=== PATIENT | male | born 1960 | race African-American/Black ===

== ENCOUNTER → 2019-02-15 | Outpatient (CLI) | payer OTHER ==
[~2019-02-15] MED LIST: REGADENOSON 0.4 MG/5 ML DISP.SYRIN. IV ONE
--- NOTE | 2019-02-15 10:55 | RAD ---
MR#: [id number] Date of Study: 02/15/2019 Ordering Physician: WILIAN DIETZ, Referring Physician: IMTIAZ MTZ Tech: DEAN Dyer ARRT (R) (N) APPROVED REPORT Test Type: Pharmacological Stress Nurse/Tech: Susana Le RN Test Indications: CP Cardiac History: Hypertension, SMOKER Medications: See Electronic Medical Record Medical History: See Electronic Medical Record Resting ECG: NSR Resting Heart Rate: 50 bpm Resting Blood Pressure: 144/90mmHg Pretest Chest Pain: None Nurse/Tech Notes Clear LS, S1 S2 Consent: The procedure was explained to the patient in lay terms. Informed consent was witnessed. Phu eout was entered into [employer]. History and Stress Test performed by Susana Le RN Pharm. Details Pharmacologic stress testing was performed using 0.4mg per 5ml of regadenoson given intravenously ove r 7-10 seconds. Stress Symptoms No chest pain or symptoms. POST EXERCISE Reason for Termination: Infusion complete Max HR: 61 bpm Max Blood Pressure: 156/77mmHg Chest Pain: No. Arrhythmia: No. ST Change: No. INTERPRETATION Stress EKG Conclusion: Baseline EKG showed sinus rhythm. No ischemic changes at peak stress. No arr hythmias. Imaging Protocol IMAGE PROTOCOL: Rest Tc-99m/stress Tc-99m 1 day Rest: Stress: Viability: Radiopharm.Tc99m IbhretnajTk75c Sestamibi Dose11.5mCi 34mCi Img Date 02/15/2019 02/15/2019 Inj-Img Nolt60tqe. 45min. Rest Admin Site:IV - Right AntecubitalAdministrator:DEAN Dyer ARRT (R)(N) Stress Admin Site: IV - Right AntecubitalAdministrator: RT Chandler (R)(N) STRESS DATA End Diast. Vol.122.0mlAv. Heart Rate65.0bpm End Syst. Vol.33.0mlCO Index BSA5.8L/min Myocardial Tdtf535.0gEject. Ucyofwtj08.0% Stress Rates Pk. Fill Rate2.79EDV/secLVtime Pk. Fill 257.52msec Pk. Empty Rate4.15ESV/secLVtime Pk. Zoeid837.46msec 1/3 Pk. Fill1.48EDV/sec Stress Scores Regional WT0.00Summed WT0.00 Regional WM0.00Summed WM0.00 Study quality was good. Left Ventricular size was Normal at Rest and Stress. Lung uptake was . Left Ventricular ejection fraction is 80%. The rest and stress images show normal perfusion, normal contraction and thickening. LV Perf. Quant 17 Seg. SSS0.00 17 Seg. SRS2.00 17 Seg. SDS0.00 Stress Defect Extent (% LAD)0.00Rest Defect Extent (% LAD)13.10Rev. Defect Extent (% LAD)0.00 Stress Defect Extent (% LCX) 0.00Rest Defect Extent (% LCX)0.00Rev. Defect Extent (% LCX)0.00 Stress Defect Extent (% RCA)0.00Rest Defect Extent (% RCA)0.00Rev. Defect Extent (% RCA)0.00 Stress Defect Extent (% SHAE)0.00Rest Defect Extent (% SHAE)4.80Rev. Defect Extent (% SHAE)0.00 Conclusion 1. Regadenoson cardioisotope stress test did not show any evidence of ischemia or infarct. 2. Normal left ventricular systolic function with ejection fraction calculated at 80%. 3. Low risk for cardiac events. Signed by : Roberto Abdi, Electronically Approved : 02/15/2019 10:55:18
== END | disposition home or self-care (01) ==
LOC: NM 08:47
PROVIDERS: ATTEND Internal Medicine Cardiovascular Disease
DX: R07.9 Chest pain, unspecified (principal); I10 Essential (primary) hypertension; Z87.891 Personal history of nicotine dependence
CPT/HCPCS: 78452; 93017; A9500; J2785

== ENCOUNTER → 2019-03-10 | Day surgery (SDC) | payer OTHER ==
[~2019-03-10] MED LIST changes: +BRIM5DRO2 OP; +DORZ10DR6 OP; +IV RINGERS,LACTATED 1000ML 1,000 ML IV SCH; +LATA2.5D3 OP; +LIDOCAINE 1% PF 2 ML VIAL. ID PRN; +LOSA-73 PO; +MIDAZOLAM HCL/PF 2 MG/2 ML VIAL. IV PRN; +PROPOFOL 40 ML IV ONE; -REGADENOSON 0.4 MG/5 ML DISP.SYRIN. IV ONE; +fentaNYL PF VIAL 100 MCG/2 ML VIAL IV PRN
[2019-03-10 09:55] VITALS: BP 133/85
== END ==
LOC: ENDOS 08:14
PROVIDERS: ATTEND Internal Medicine Gastroenterology
DX: Z12.11 Encounter for screening for malignant neoplasm of colon (principal); K64.0 First degree hemorrhoids; K63.89 Other specified diseases of intestine; F15.90 Other stimulant use, unspecified, uncomplicated; Z86.010 Personal history of colon polyps; Z72.89 Other problems related to lifestyle; Z80.3 Family history of malignant neoplasm of breast
CPT/HCPCS: 45378; J2704

== ENCOUNTER → 2020-10-18 | Outpatient (CLI) | payer OTHER ==
[2019-03-10 09:55] VITALS: BP 133/85
[~2020-10-18] MED LIST changes: -IV RINGERS,LACTATED 1000ML 1,000 ML IV SCH; -LIDOCAINE 1% PF 2 ML VIAL. ID PRN; -MIDAZOLAM HCL/PF 2 MG/2 ML VIAL. IV PRN; -PROPOFOL 40 ML IV ONE; -fentaNYL PF VIAL 100 MCG/2 ML VIAL IV PRN
== END ==
LOC: LAB 12:03
PROVIDERS: ATTEND Internal Medicine Cardiovascular Disease
DX: Z01.812 Encounter for preprocedural laboratory examination (principal); I49.5 Sick sinus syndrome; Z20.828 Contact with and (suspected) exposure to other viral communicable diseases
CPT/HCPCS: U0003

== ENCOUNTER 2020-10-20 08:14 | Observation (INO) | payer OTHER ==
[~2020-10-20] VITALS: Ht 177.8 cm; Wt 86.0 kg
[2020-10-20] VITALS (15 sets, daily range): BP systolic 105–140; BP diastolic 59–101
--- NOTE | 2020-10-20 08:59 | EKG ---
[facility] [address] [place] [address] Test Date: 2020-10-20 Test Time: 08:56:04 Pat Name: LENORE HULL Department: Room: Gender: M Teller Head: SERENE : 1960 Requested By: AVELINA RUSS Order Number: [id number] Reading MD: Measurements Intervals [place] Rate: 54 P: [place]: QRS: -19 QRSD: 84 T: -17 QT: 450 QTc: 429 Interpretive Statements IRREGULAR RHYTHM, NO P-WAVE FOUND LEFTWARD AXIS T ABNORMALITY IN INFERIOR LEADS ABNORMAL ECG RI6.02 No previous ECG available for comparison
[2020-10-20 09:03] LABS: RED BLOOD COUNT 4.45 x10^6/uL (4.30-5.70); RED CELL DISTRIBUTION WIDTH 12.7 % (11.5-14.5); WHITE BLOOD COUNT 4.7 x10^3/uL (4.0-11.0)
[2020-10-20 09:12] LABS: CALCIUM 8.8 mg/dL (8.5-10.1); GFR 91.6; POTASSIUM 3.5 mmol/L (3.5-5.1); PROTHROMBIN TIME PATIENT 13.9 SEC (11.7-14.0)
[2020-10-20] MEDS ORDERED: MIDAZOLAM HCL/PF 5 MG/5 ML VIAL. ONE (09:45)
[2020-10-20] MEDS ORDERED: fentaNYL PF VIAL 100 MCG/2 ML VIAL ONE (09:45)
[2020-10-20] MEDS ORDERED: LIDOCAINE 2%/EPI 1:100,000 20 ML VIAL. ONE (09:59)
[2020-10-20] MEDS ORDERED: BACITRACIN 50,000 UNIT in IV NORMAL SALINE 250ML 250 ML IRR ONE (10:00)
--- NOTE | 2020-10-20 10:06 | PDOC ---
MODERATE SEDATION ASSESSMENT RISKS/ALTERNATIVES Risks/Alternatives Risks and alternatives of this type of sedation and procedure discussed with: RISK/ALTERNATIVES: Patient H & P ON CHART H & P H & P on chart and reviewed for co-morbid conditions and appropriate labs. H&P ON CHART: Yes STATUS PREG STATUS ASSESSED: N/A MEDS/ALLERGIES REVIEWED Meds/Allergies Reviewed Medications and Allergies including time and route of recently administered narcotics and sedatives. MEDS/ALLERGIES REVIEWED: Yes ASA RATING ASA RATING: II AIRWAY ASSESSMENT Airway Assessment Airway patency, oral function limitations, presence of caps, crowns, dentures, partials, and ability to extend neck assessed. AIRWAY ASSESSMENT: Yes MALLAMPATI SCORE MALLAMPATI SCORE: II PRE-SEDATION ASSESSMENT PRE-SEDATION ASSESSMENT: Yes AVELINA RUSS MD Oct 20, 2020 10:06
[2020-10-20] MEDS ORDERED: MIDAZOLAM HCL/PF 5 MG/5 ML VIAL. IV ONE (10:15)
[2020-10-20] MEDS ORDERED: LIDOCAINE 2%/EPI 1:100,000 20 ML VIAL. IJ ONE (10:15)
[2020-10-20] MEDS ORDERED: fentaNYL PF VIAL 100 MCG/2 ML VIAL IV ONE (10:15)
--- NOTE | 2020-10-20 11:05 | NUR ---
Patient arrived to room 262 via bed from color laboratory technician around 1105. Patient A&OX4. VSS. L chest pacemaker site CDI. The patient, LENORE HULL, 60 y/o, M admitted by KYREE LIU MD, was given written information regarding hospital policies, unit procedures and contact persons. Valuables were checked and noted. Will continue to monitor.
--- NOTE | 2020-10-20 11:14 | CARD ---
MR#: [id number] Date of Study: 10/20/2020 Ordering Physician: AVELINA ABDI, Referring Physician: AVELINA ABDI, Tech: APPROVED REPORT PROCEDURES Insertion Dual Chamber Pacemaker Implantation of Medtronic dual-chamber permanent pacemaker Sedation Time: 55 Minutes Fluoro Time: 3.1 Minutes Dose: 7.7 Gycm2 Estimated blood loss: 10 ml INDICATIONS Sick sinus syndrome with significant pauses of greater than 5 seconds PROCEDURE After explaining the risks, benefits, and alternative options, informed consent was obtained from the patient. The patient was brought to the cardiac catheterization lab and the left chest and shoulder were prepp ed and draped in a sterile manner. 35 mL of 2% lidocaine was infiltrated into the skin and subcutaneous tissues for local anesthesia. A n incision was made over the left infraclavicular fossa and using blunt dissection and cautery, a poc ket was created. Venous access was obtained in the left subclavian vein and 9 and 7 Palestinian sheaths i nserted. A Medtronic bipolar active fixation right ventricular lead model 548277, serial number [id number] wa s advanced under fluoroscopy guidance and the tip was positioned in the right ventricular apex. Foll owing this, a Medtronic bipolar active fixation right atrial lead model 771011, serial number [id number] was position in the right atrial appendage under fluoroscopy guidance. The leads were secured i nto place and were attached to a Medtronic dual-chamber permanent pacemaker generator model [id number], s erial number [id number]. This was placed in the pocket that was subsequently closed in 3 layers. He mostasis was secured. The right ventricular lead showed a sensing amplitude of 11.9 mV, impedance of 902 ohms and a thresho ld of 0.4 V. The right atrial lead showed a sensing amplitude of 0.8 mV (s/p CABG), impedance of 646 ohms and a threshold of 0.8 V. Patient tolerated the procedure well. There were no immediate compl ications. CONCLUSION Successful implantation of Medtronic dual-chamber permanent pacemaker for sick sinus syndrome syndrom e with significant pauses. Signed by : Avelina Abdi, Electronically Approved : 10/20/2020 11:14:10
--- NOTE | 2020-10-20 13:01 | RAD ---
XR CHEST 1V CLINICAL INDICATIONS: Reason: Post pacemaker Comparison: June 30, 2015. Findings: Bipolar atrioventricular pacemaker has been placed via a left subclavian approach. No acute lung infiltrate or pleural effusion or pulmonary edema or lung mass or pneumothorax is seen. Sternot quinton is again evident. The heart size, pulmonary vasculature, mediastinum and both chris are unremarkab le. IMPRESSION: No acute radiographic abnormality is seen. Electronically signed by: Hal Stephens MD (10/20/2020 12:58 PM) [id number]
--- NOTE | 2020-10-20 15:40 | CARD ---
MR#: [id number] Date of Study: 10/20/2020 Ordering Physician: AVELINA RUSS, Referring Physician: AVELINA RUSS, Tech: Lou Navarro [facility] APPROVED REPORT EXAM: Two-dimensional and M-mode echocardiogram with Doppler and color Doppler. Other Information Quality : AverageHR: 60bpm Rhythm : NSR INDICATION 2D DIMENSIONS RVDd2.9 (2.9-3.5cm)Left Atrium(2D)3.3 (1.6-4.0cm) IVSd1.1 (0.7-1.1cm)Aortic Root(2D)3.8 (2.0-3.7cm) LVDd4.6 (3.9-5.9cm)LVOT Diameter2.0 (1.8-2.4cm) PWd1.1 (0.7-1.1cm)LVDs3.2 (2.5-4.0cm) FS (%) 30.7 %SV55.8 ml LVEF(%)58.4 (>50%) Aortic Valve AoV Peak Calvin.94.4cm/Robson Peak GR.3.6mmHg LVOT VTI 0.00cmAI P 1/2 Cijr61yx Mitral Valve MV E Cvkrjdma80.7cm/sMV DECEL AOAU029of MV A Yqqqneym88.0cm/sE/A Ratio0.7 TDI Lateral E' P. V9.09cm/sMedial E' P. V4.91cm/s E/Lateral E'3.8E/Medial E'7.1 LEFT VENTRICLE The left ventricle is normal size. There is borderline concentric left ventricular hypertrophy. The l eft ventricular systolic function is normal and the ejection fraction is within normal range. Estimat ed ejection fraction 55-60%. There is normal LV segmental wall motion. The left ventricular diastolic function and filling is normal for age. RIGHT VENTRICLE The right ventricle is normal size. There is normal right ventricular wall thickness. The right ventr icular systolic function is normal. ATRIA The left atrium size is normal. The right atrium size is normal. The interatrial septum is intact wit h no evidence for an atrial septal defect or patent foramen ovale as noted on 2-D or Doppler imaging. AORTIC VALVE The aortic valve is normal in structure and function. Doppler and Color Flow revealed no significant aortic regurgitation. There is no significant aortic valvular stenosis. MITRAL VALVE The mitral valve is normal in structure and function. There is no evidence of mitral valve prolapse. There is no mitral valve stenosis. Doppler and Color-flow revealed trace mitral regurgitation. TRICUSPID VALVE The tricuspid valve is normal in structure and function. Doppler and Color Flow revealed trace tricus pid regurgitation. Estimated PAP 28-30 mmHg. There is no tricuspid valve stenosis. PULMONIC VALVE The pulmonary valve is normal in structure and function. Doppler and Color Flow revealed no pulmonic valvular regurgitation. GREAT VESSELS The aortic root is normal in size. The ascending aorta is normal in size. The IVC is normal in size a nd collapses >50% with inspiration. PERICARDIAL EFFUSION There is no evidence of significant pericardial effusion. Critical Notification Critical Value: No <Conclusion> The left ventricle is normal size. The left ventricular systolic function is normal and the ejection fraction is within normal range. Estimated ejection fraction 55-60%. There is borderline concentric left ventricular hypertrophy. Doppler and Color Flow revealed no significant aortic regurgitation. There is no significant aortic valvular stenosis. Doppler and Color-flow revealed trace mitral regurgitation. Doppler and Color Flow revealed trace tricuspid regurgitation. Estimated PAP 28-30 mmHg. Signed by : Paco Argueta MD Electronically Approved : 10/20/2020 15:40:05
[2020-10-20] MEDS: BRIMONIDINE 0.2% OPHTH SOLUTION 5ML BOTTLE. OD SCH (21:00)
[2020-10-20] MEDS: LATANOPROST 0.005% OPHTH SOLUTION 2.5ML BOTTLE. OU SCH (21:00)
[2020-10-20] MEDS: TIMOLOL 0.25% OPHTH SOLUTION 5ML BOTTLE. OU SCH (21:00)
[2020-10-20] MEDS: DORZOLAMIDE 2% OPHTH SOLUTION 10ML BOTTLE. OU SCH (21:00)
[2020-10-20] MEDS: oxyCODONE/APAP 5/325 1 TAB TABLET PO PRN (23:09)
[2020-10-21 04:14] VITALS: BP 144/91
[2020-10-21 07:00] VITALS: BP 150/95
[2020-10-21] MEDS: oxyCODONE/APAP 5/325 1 TAB TABLET PO PRN (08:05)
[2020-10-21] MEDS: DORZOLAMIDE 2% OPHTH SOLUTION 10ML BOTTLE. OU SCH (08:06)
[2020-10-21] MEDS: BRIMONIDINE 0.2% OPHTH SOLUTION 5ML BOTTLE. OD SCH (08:06)
[2020-10-21] MEDS: LATANOPROST 0.005% OPHTH SOLUTION 2.5ML BOTTLE. OU SCH (08:06)
--- NOTE | 2020-10-21 08:06 | RAD ---
Exam performed: 2 views of the chest. Indication: Reason: 1 day post pacemaker implantation / Spl. Instructions: / History: Date of Service: 10/21/2020 7:14 AM . Comparison : One view chest from 10/20/2020 Findings: PA and lateral radiographs of the chest reveal a normal cardiomediastinal contour. Bipolar pacemaker. Previous median sternotomy. The lungs are hyperinflated, however clear. No pleural fluid is seen. T he visualized osseous structures are unremarkable. Impression: No acute cardiopulmonary process seen. Electronically signed by: Michelle Haney MD (10/21/2020 8:04 AM) [id number]
[2020-10-21] MEDS: TIMOLOL 0.25% OPHTH SOLUTION 5ML BOTTLE. OU SCH (08:07)
[2020-10-21] MEDS ORDERED: LOSARTAN POTASSIUM 50 MG TABLET. PO SCH (09:00)
[2020-10-21 11:00] VITALS: BP 107/77
--- NOTE | 2020-10-21 15:38 | PDOC3 ---
Discharge Summary Visit Information Date of Admission: Oct 20, 2020 Date of Discharge: Oct 21, 2020 Admitting Diagnosis: Sick sinus syndrome with pauses Final Diagnosis Sick sinus syndrome with pauses Brief Hospital Course Allergies Allergies Coded Allergies Type Severity Reaction Last Updated Verified No Known Drug Allergies 03/10/19 No Vital Signs Vital Signs Date Time Temp Pulse Resp B/P (MAP) Pulse Ox O2 Delivery O2 Flow Rate FiO2 10/21/20 11:00 98.1 59 16 107/77 (87) 98 Room Air 98.1 10/21/20 00:09 4.0 Lab Results Laboratory Tests Test 10/20/20 08:50 White Blood Count 4.7 x10^3/uL (4.0-11.0) Red Blood Count 4.45 x10^6/uL (4.30-5.70) Hemoglobin 15.0 g/dL (13.0-17.5) Hematocrit 44.0 % (39.0-53.0) Mean Corpuscular Volume 99 fL (79-100) Mean Corpuscular Hemoglobin 34 pg (25-35) Mean Corpuscular Hemoglobin Concent 34 g/dL (31-37) Red Cell Distribution Width 12.7 % (11.5-14.5) Platelet Count 200 x10^3/uL (140-400) Prothrombin Time 13.9 SEC (11.7-14.0) Prothromb Time International Ratio 1.1 (0.8-1.1) Sodium Level 139 mmol/L (136-145) Potassium Level 3.5 mmol/L (3.5-5.1) Chloride Level 104 mmol/L (98-107) Carbon Dioxide Level 25 mmol/L (21-32) Anion Gap 10 (6-14) Blood Urea Nitrogen 15 mg/dL (8-26) Creatinine 1.0 mg/dL (0.7-1.3) Estimated GFR (Cockcroft-Gault) 91.6 Glucose Level 110 mg/dL (70-99) Calcium Level 8.8 mg/dL (8.5-10.1) Brief Hospital Course The patient is a 60-year-old male who 1 outpatient monitor was found to have sick sinus syndrome with pauses greater than 5 seconds. Risks and benefits of a pacemaker were discussed with the patient and he agreed to proceed. The patient was brought to the catheterization lab on 10/20/2020 and a dual-chamber pacemaker was placed without complications. Chest x-ray at that night and this morning were normal. Interrogation of the device was normal. The patient is feeling well. He will be discharged today on his present home medications. Follow-up will be arranged and will be a wound check in approximately 10 days. Assessment Assessment Sick sinus syndrome with significant pauses. Successfully treated with permanent pacemaker implantation without complications. Discharge Information Condition at Discharge: Improved Follow Up: Weeks Disposition/Orders: D/C to Home Scheduled Brimonidine Tartrate/Timolol (Combigan Eye Drops) 5 Ml Drops, 5 ML OP BID for glaucoma, (Reported) Entered as Reported by: NICOLE COET on 03/10/19825 Last Taken: Unknown Dose on 10/20/20 Last Action: Converted on 10/20/201925 by DELBERT LI Dorzolamide Hcl (Dorzolamide Hcl) 10 Ml Drops, 10 ML OP TID for glaucoma, (Reported) Entered as Reported by: NICOLE COTE on 03/10/19825 Last Taken: Unknown Dose on 10/20/20 Last Action: Continued on 10/20/201924 by DELBERT LI Latanoprost (Latanoprost) 2.5 Ml Drops, 1 DROP OP HS for glaucoma, (Reported) Entered as Reported by: NICOLE COTE on 03/10/19825 Last Taken: Unknown Dose on 10/20/20 Last Action: Continued on 10/20/201924 by DELBERT LI Losartan Potassium (Losartan Potassium) 50 Mg Tablet, 50 MG PO DAILY for HYPERTENSION, (Reported) Entered as Reported by: NICOLE COTE on 03/10/19825 Last Taken: Unknown Dose on 10/20/20 Last Action: Continued on 10/20/201925 by DELBERT LI Patient Instructions Patient Instructions Routine pacemaker instructions given the patient. Patient will keep his dressing on the wound until follow-up. He was instructed not to raise his arm above his head until follow-up. We will check on the patient via phone in 2 days. Justicifation of Admission Dx: Justifications for Admission: Justification of Admission Dx: Yes WILIAN DIETZ MD Oct 21, 2020 15:37
--- NOTE | 2020-10-21 16:08 | NUR ---
Pt alert and oriented throughout shift. Pt dressing removed from surgical site. Site CDI. Sent pt with extra island dressing in case site bleeds at home. Pt tolerated removal of both IV's. Catheter tips intact. Pressure applied bleeding stopped. Pt educated on post pacemaker instructions. Pt educated on how to plug in pacemaker transmitter. All pt questions answered at time of discharge. Pt advised when next medications due and that drs office will call on friday for follow up. Pt wheeled to outpatient by TRIP RIDER to private vehicle.
== END 2020-10-21 17:53 | disposition home or self-care (01) ==
LOC: CCL 08:14 → 2 SOUTH 08:30 → INTOOBSV 08:30
PROVIDERS: ADMIT Family Medicine; ATTEND Internal Medicine Cardiovascular Disease
DX: I49.5 Sick sinus syndrome (principal); I10 Essential (primary) hypertension; E78.1 Pure hyperglyceridemia; H54.62 Unqualified visual loss, left eye, normal vision right eye; R07.9 Chest pain, unspecified; H40.9 Unspecified glaucoma; Z98.890 Other specified postprocedural states; Z85.46 Personal history of malignant neoplasm of prostate; Z68.27 Body mass index [BMI] 27.0-27.9, adult; Z95.0 Presence of cardiac pacemaker
CPT/HCPCS: 33208; 36415; 71045; 71046; 80048; 85027; 85610; 93005; 93306; 96365; 96366; 96368; 96375; 99152; 99153; C1785; G0378; G0379; J0690; J2250; J3010; J3490; J7050; J7030

== ENCOUNTER → 2021-10-09 | Outpatient (CLI) | payer OTHER ==
--- NOTE | 2021-10-09 09:52 | RAD ---
EXAM: Abdomen sonogram. HISTORY: Elevated liver function laboratory values. TECHNIQUE: Sonographic imaging of the abdomen was performed. COMPARISON: None. FINDINGS: The liver is normal in size. No focal hepatic lesion is seen. The liver parenchyma is sligh tly echogenic relative to the renal cortex. This favors mild hepatic steatosis. The gallbladder is un remarkable. The common bile duct is normal in caliber. The kidneys are unremarkable. The pancreas and spleen are unremarkable. The aorta is normal in caliber. The inferior vena cava is patent. IMPRESSION: 1. Suspected mild hepatic steatosis. 2. No acute sonographic finding. Electronically signed by: Lady Silva MD (10/09/2021 9:49 AM) [id number]
== END ==
LOC: US 09:13
PROVIDERS: ATTEND Family Medicine
DX: R74.01 Elevation of levels of liver transaminase levels (principal)
CPT/HCPCS: 76700

== ENCOUNTER → 2021-11-02 | Outpatient (CLI) | payer OTHER ==
[2021-11-02 13:59] VITALS: BP 133/91
--- NOTE | 2021-11-02 14:30 | NUR ---
Pt here for MRI of cervical spine, Medtronic rep here to program pacemaker for exam. Pt tolerated exam without difficulty, VSS. Upon completion of exam, [employer] rep made final adjustment and pt ambulated out with steady gait. INEZ CHAKRABORTY
--- NOTE | 2021-11-02 16:12 | RAD ---
EXAMINATION: Magnetic resonance imaging (MRI) of the cervical spine without contrast 11/02/2021 1:03 PM HISTORY: Cervical radiculopathy TECHNIQUE: Multiplanar multi-weighted MRI of the cervical spine was performed without intravenous con trast using the standard cervical spine protocol. Contrast information: None administered COMPARISON: None available. FINDINGS: There is straightening of the normal cervical lordosis. There is moderate disc height loss at C4-C5, C5-C6 and C6-C7 with Modic type II endplate degenerative changes. Minimal Modic type I endplate degen erative changes are identified at C7-T1 anteriorly. There is congenital narrowing of the spinal canal secondary to shortened pedicles.. No acute fracture is identified; however, if trauma is suspected, a CT scan would be a more sensitive examination for fractures. The craniocervical junction is normal . The visualized portions of the skull base and the posterior fossa are normal. The spinal cord dem onstrates normal signal intensity on all sequences. No soft tissue abnormality is identified. Ashley l signal voids are present in the vertebral arteries. Disc protrusion at T2-T3 with mild spinal canal stenosis without deformity of the cord. C2-C3: The disk is normal in configuration. There is no facet arthropathy. There is no uncovertebral joint disease. There is no neuroforaminal stenosis. There is no spinal canal stenosis. C3-C4: There is a superficial disc bulge. No significant facet arthropathy. Mild uncovertebral joint disease. Mild bilateral neuroforaminal stenosis. Mild spinal canal stenosis without deformity of the cord or cord signal abnormality. C4-C5: There is a posterior disc osteophyte complex. Mild facet arthropathy. Mild uncovertebral joint disease. Moderate left and mild right neural foraminal stenosis. Mild spinal canal stenosis without deformity of the cord or cord signal abnormality. C5-C6: There is a posterior disc osteophyte complex asymmetric to the left. Mild facet arthropathy. M oderate left and mild right uncovertebral joint disease. Moderate left and mild right neural foramina l stenosis. Mild spinal canal stenosis. Mild deformity ventral cord. No cord signal abnormality. C7: There is a posterior disc osteophyte complex. No significant facet arthropathy. Moderate left and moderate uncovertebral joint disease. Moderate bilateral neuroforaminal stenosis. Mild spinal canal stenosis without deformity cord or cord signal abnormality. C7-T1: Mild disc bulge. No significant facet or uncovertebral joint disease. Bilateral neural foramin al stenosis. Mild spinal canal stenosis without deformity of the cord or cord. IMPRESSION: Mild to moderate degenerative changes of the cervical spine as described in detail above. Electronically signed by: Yesy Thibodeaux MD (11/02/2021 4:10 PM) [id number]
== END ==
LOC: MRI 12:48
PROVIDERS: ATTEND Family Medicine
DX: M47.22 Other spondylosis with radiculopathy, cervical region (principal); M50.13 Cervical disc disorder with radiculopathy, cervicothoracic region; M48.03 Spinal stenosis, cervicothoracic region; M25.78 Osteophyte, vertebrae
CPT/HCPCS: 72141